=== PATIENT | male | born 1985 | race Caucasian/White ===

== ENCOUNTER → 2025-03-30 | Outpatient (CLI) | payer BC, SELFPAY ==
--- NOTE | 2025-03-30 09:14 | XR_ITS ---
EXAMINATION: Lumbar spine 3 views TECHNIQUE: Standing AP lateral: Lateral lower lumbar spine 3 views Date and time: March 30, 2025, 0949 hours INDICATIONS: Low back pain 10 years. FINDINGS: Thoracolumbar levoscoliosis 12 degrees No lumbar fracture Mild to moderate diffuse lumbar disc narrowing most prominent at L5-S1 IMPRESSION: Mild to moderate diffuse lumbar disc narrowing, most prominent at L5-S1
== END | disposition home or self-care (01) ==
PROVIDERS: PCP Family Medicine; Referring Provider Chiropractor; Visit Provider Chiropractor
DX: M48.061 Spinal stenosis, lumbar region without neurogenic claudication (principal); M51.370 Other intervertebral disc degeneration, lumbosacral region with discogenic back pain only
CPT/HCPCS: 72100